=== PATIENT | male | born 1935 | race Caucasian/White ===

== ENCOUNTER 2017-09-29 08:53 | Outpatient (CLI) | payer OTHER, MEDICARE | END 2017-09-29 16:23 | disposition home or self-care (01) | LOC: SRD 08:53 | PROVIDERS: ATTEND Internal Medicine Cardiovascular Disease | DX: I70.0 Atherosclerosis of aorta (principal); M47.894 Other spondylosis, thoracic region; I10 Essential (primary) hypertension | CPT/HCPCS: 71046-TC ==

== ENCOUNTER 2018-06-17 00:22 | Emergency (ER) | payer OTHER, MEDICARE ==
[~2018-06-17] VITALS: Ht 170.2 cm; Wt 60.8 kg
[2018-06-17 00:31] VITALS: BP_SYST 125
--- NOTE | 2018-06-17 00:39 | NUR ---
Patient to ER bed 07 to gown for evaluation. Side rails up. Report given to NATIVIDAD Siegel
--- NOTE | 2018-06-17 00:41 | NUR ---
Patient brought in by daughter. Daughter reports patient fell at home on 06/15/18 when missing a step and fell face forward hitting a cement step. Daughter reports no KO/LOC, denies any dizziness/nausea/vomiting. Patient has abrasion to the bridge of nose, skin tear to the right forearm, and superficial laceration to 2nd left finger. Patient also complains of pain to right thigh. Pain 4/10. No other complaints/injuries per patient or as noted. Will continue to monitor.
--- NOTE | 2018-06-17 01:05 | NUR ---
Patient off unit to CT
--- NOTE | 2018-06-17 01:14 | NUR ---
Patient returned for CT scan. VSS. Will continue to monitor
--- NOTE | 2018-06-17 01:26 | NUR ---
ER Dr. Rodgers at bedside examining patient.
--- NOTE | 2018-06-17 01:43 | NUR ---
Wound Care applied to right forearm and bandaged with non adherent guaze and rolled guaze. Patient tolerated well.
[2018-06-17 01:53] VITALS: BP_SYST 125
--- NOTE | 2018-06-17 01:53 | NUR ---
Patient given written and verbal discharge instructions and verbalizes understanding. ER MD discussed with patient the results and treatment provided. Patient in stable condition. ID arm band removed. No Rx given. Patient educated on pain management and to follow up with PMD in 4-5 days. Pain Scale 0/10 Opportunity for questions provided and answered.
== END 2018-06-17 01:53 | disposition home or self-care (01) ==
LOC: SED 00:22
DX: S61.211A Laceration without foreign body of left index finger without damage to nail, initial encounter (principal); S09.90XA Unspecified injury of head, initial encounter; I10 Essential (primary) hypertension; Z86.79 Personal history of other diseases of the circulatory system; W18.09XA Striking against other object with subsequent fall, initial encounter; Y93.89 Activity, other specified; Y92.89 Other specified places as the place of occurrence of the external cause; Y99.8 Other external cause status
CPT/HCPCS: 70450-TC; 99284

== ENCOUNTER 2018-08-11 23:32 | Inpatient (IN) | payer OTHER, MEDICARE ==
[~2018-08-11] VITALS: Ht 172.7 cm; Wt 64.9 kg
[2018-08-11 23:39] VITALS: BP_SYST 152
[2018-08-11] MEDS ORDERED: glaucoma eye drops (23:51)
[2018-08-11] MEDS ORDERED: blood pressure meds (23:51)
[2018-08-11] MEDS ORDERED: cholesterol meds (23:51)
[2018-08-11] MEDS ORDERED: ASPI-1155 PO (23:51)
[2018-08-12 00:09] LABS: BASOPHILS % (AUTO) 1.3 % (0.0-2.0); EOSINOPHILS # (AUTO) 0.1 K/uL (0.0-0.4); HEMOGLOBIN 11.5 g/dL (14.0-18.0); LYMPHOCYTES # (AUTO) 3.7 K/uL (1.0-5.5); LYMPHOCYTES % (AUTO) 33.2 % (20.5-51.5); MEAN CORPUSCULAR HEMOGLOBIN 33 pg (27-31); MEAN CORPUSCULAR HGB CONC 33 % (32-36); MEAN CORPUSCULAR VOLUME 99 fL (79.0-98.0); MONOCYTES # (AUTO) 1.2 K/uL (0.0-1.0); MONOCYTES % (AUTO) 10.9 % (1.7-9.3); NEUTROPHILS % (AUTO) 53.6 % (40.0-70.0); PLATELET COUNT (AUTO) 163 K/uL (130-430); RED BLOOD CELL COUNT(AUTO) 3.55 MIL/uL (4.2-6.2); WHITE BLOOD COUNT (AUTO) 11.2 K/uL (4.8-10.8)
[2018-08-12 00:10] LABS: BASOPHILS # (AUTO) 0.1 K/uL (0.0-0.2)
[2018-08-12] MEDS ORDERED: methylPREDNISolone SOD SUCC/PF 62.5 MG/ML VIAL IVP ONE (00:15)
[2018-08-12] MEDS ORDERED: IPRATROPIUM/ALBUTEROL SULFATE 3 ML AMPUL.NEB (DUONEB) INH ONE (00:15)
[2018-08-12 00:17] LABS: ANION GAP 10 (5-15); CALCIUM 7.9 mg/dL (8.4-11.0); CHLORIDE 104 mmol/L (98-107); CREATININE 2.71 mg/dL (0.55-1.30); GLUCOSE 123 mg/dL (70-99); POTASSIUM 4.3 mmol/L (3.5-5.1); SODIUM SERUM 137 mmol/L (136-145); UREA NITROGEN, BLOOD 42 mg/dL (8-21)
[2018-08-12 00:23] LABS: ALANINE AMINOTRANSFERASE 37 U/L (12-78); ALBUMIN 2.1 g/dL (3.4-4.8); ASPARTATE AMINOTRANSFERASE 54 U/L (10-37); TOTAL BILIRUBIN 0.5 mg/dL (0.0-1.0)
[2018-08-12] MEDS ORDERED: IRBE75TA29 PO (00:31)
[2018-08-12] MEDS ORDERED: LIP80 PO (00:33)
[2018-08-12] MEDS ORDERED: ACYC800T PO (00:38)
[2018-08-12] MEDS ORDERED: DORZ10DR20 OP (00:38)
[2018-08-12 01:00] VITALS: BP_SYST 152
[2018-08-12 02:12] VITALS: BP_SYST 126
[2018-08-12] MEDS: IPRATROPIUM/ALBUTEROL SULFATE 3 ML AMPUL.NEB (DUONEB) INH SCH ×3 (07:27→19:44)
[2018-08-12 08:05] VITALS: BP_SYST 128
[2018-08-12] MEDS ORDERED: ACETAMINOPHEN 325 MG TABLET PO PRN (08:15)
[2018-08-12] MEDS ORDERED: INSULIN LISPRO SLIDING SCALE 100 UNITS/ML VIAL (humaLOG) SUBCUT PRN (08:30)
[2018-08-12] MEDS: ASPIRIN 81 MG TAB.CHEW PO SCH (08:59)
[2018-08-12] MEDS: FAMOTIDINE 20 MG TABLET PO SCH (09:00)
[2018-08-12] MEDS: LOSARTAN POTASSIUM 25 MG TABLET PO SCH (09:00)
[2018-08-12] MEDS ORDERED: IRBESARTAN 150 MG TABLET (AVAPRO) PO SCH (09:00)
[2018-08-12] MEDS ORDERED: methylPREDNISolone SOD SUCC 40 MG/ML VIAL IVP SCH (09:00)
[2018-08-12] MEDS: 0.45% NACL 1,000 ML IV SCH (09:20)
[2018-08-12 12:52] VITALS: BP_SYST 121
[2018-08-12] MEDS ORDERED: BENZOCAINE/MENTHOL 1 EACH LOZENGE MM PRN (13:45)
[2018-08-12 16:01] LABS: BILIRUBIN,URINE NEGATIVE (NEGATIVE); CLARITY/URINE CLEAR (CLEAR); COLOR,URINE YELLOW (YELLOW); GLUCOSE,URINE NEGATIVE (NEGATIVE); KETONES,URINE NEGATIVE (NEGATIVE); LEUKOCYTE ESTERASE ,URINE NEGATIVE (NEGATIVE); NITRITE, URINE NEGATIVE (NEGATIVE); PH,URINE 5.5 (5.0-8.0); PROTEIN URINE 1+ (NEGATIVE); UROBILINOGEN,URINE 0.2 (0.2-1.0)
[2018-08-12 16:05] VITALS: BP_SYST 140
[2018-08-12 16:09] LABS: BLOOD, URINE TRACE (NEGATIVE)
[2018-08-12 16:10] LABS: BACTERIA,URINE FEW /HPF (None Seen); MUCUS,URINE None Seen /LPF (None Seen); RBC,URINE NONE SEEN /HPF (0-3); WBC,URINE 0-3 /HPF (0-3)
[2018-08-12 20:00] VITALS: BP_SYST 130
[2018-08-12] MEDS: methylPREDNISolone SOD SUCC 40 MG/ML VIAL IVP SCH (20:32)
[2018-08-12] MEDS: ATORVASTATIN 20 MG TABLET PO SCH (20:32)
[2018-08-12] MEDS: LEVOFLOXACIN 250 MG/D5W 50 ML IV SCH (23:10)
[2018-08-13 00:20] VITALS: BP_SYST 122
[2018-08-13] MEDS: 0.45% NACL 1,000 ML IV SCH ×2 (05:43→23:26)
[2018-08-13 07:41] LABS: ALANINE AMINOTRANSFERASE 38 U/L (12-78); ALBUMIN 1.8 g/dL (3.4-4.8); ANION GAP 10 (5-15); ASPARTATE AMINOTRANSFERASE 48 U/L (10-37); CALCIUM 7.6 mg/dL (8.4-11.0); CHLORIDE 105 mmol/L (98-107); CREATININE 2.35 mg/dL (0.55-1.30); GLUCOSE 136 mg/dL (70-99); POTASSIUM 3.7 mmol/L (3.5-5.1); SODIUM SERUM 134 mmol/L (136-145); TOTAL BILIRUBIN 0.3 mg/dL (0.0-1.0); UREA NITROGEN, BLOOD 47 mg/dL (8-21)
[2018-08-13 07:48] LABS: HEMATOCRIT 28.8 % (36-54); HEMOGLOBIN 9.8 g/dL (14.0-18.0); MEAN CORPUSCULAR HEMOGLOBIN 33 pg (27-31); MEAN CORPUSCULAR HGB CONC 34 % (32-36); MEAN CORPUSCULAR VOLUME 98 fL (79.0-98.0); PLATELET COUNT (AUTO) 159 K/uL (130-430); RED BLOOD CELL COUNT(AUTO) 2.95 MIL/uL (4.2-6.2); RED CELL DISTRIBUTION WIDTH 14.9 % (9.0-15.0); WHITE BLOOD COUNT (AUTO) 10.5 K/uL (4.8-10.8)
[2018-08-13 07:49] LABS: BASOPHILS # (AUTO) 0.3 K/uL (0.0-0.2); BASOPHILS % (AUTO) 0.3 % (0.0-2.0); LYMPHOCYTES # (AUTO) 18.4 K/uL (1.0-5.5); LYMPHOCYTES % (AUTO) 18.4 % (20.5-51.5); MONOCYTES # (AUTO) 7.7 K/uL (0.0-1.0); MONOCYTES % (AUTO) 7.7 % (1.7-9.3); NEUTROPHILS # (AUTO) 73.6 K/uL (1.8-7.7); NEUTROPHILS % (AUTO) 73.6 % (40.0-70.0)
[2018-08-13 08:35] VITALS: BP_SYST 139
[2018-08-13] MEDS: FAMOTIDINE 20 MG TABLET PO SCH (08:39)
[2018-08-13] MEDS: ASPIRIN 81 MG TAB.CHEW PO SCH (08:39)
[2018-08-13] MEDS: LOSARTAN POTASSIUM 25 MG TABLET PO SCH (08:40)
[2018-08-13] MEDS: methylPREDNISolone SOD SUCC 40 MG/ML VIAL IVP SCH ×2 (08:42→21:07)
[2018-08-13 11:27] VITALS: BP_SYST 135
[2018-08-13 15:16] VITALS: BP_SYST 138
[2018-08-13] MEDS: IPRATROPIUM/ALBUTEROL SULFATE 3 ML AMPUL.NEB (DUONEB) INH SCH ×2 (19:46)
[2018-08-13 20:00] VITALS: BP_SYST 146
[2018-08-13] MEDS: ATORVASTATIN 20 MG TABLET PO SCH (21:07)
[2018-08-13] MEDS: LEVOFLOXACIN 250 MG/D5W 50 ML IV SCH (23:26)
[2018-08-14 02:05] VITALS: BP_SYST 127
[2018-08-14] MEDS: IPRATROPIUM/ALBUTEROL SULFATE 3 ML AMPUL.NEB (DUONEB) INH SCH ×2 (06:00)
[2018-08-14 07:09] LABS: ANION GAP 10 (5-15); CALCIUM 7.6 mg/dL (8.4-11.0); CHLORIDE 105 mmol/L (98-107); CREATININE 2.07 mg/dL (0.55-1.30); GLUCOSE 125 mg/dL (70-99); POTASSIUM 3.9 mmol/L (3.5-5.1); SODIUM SERUM 135 mmol/L (136-145); THYROID STIMULATING HORMONE 1.29 uIu/mL (0.34-4.82); UREA NITROGEN, BLOOD 47 mg/dL (8-21)
[2018-08-14 07:48] LABS: TOTAL IRON BIND. CAPACITY 182 ug/dL (250-450)
[2018-08-14 08:00] VITALS: BP_SYST 142
[2018-08-14 08:37] LABS: HEMATOCRIT 29.6 % (36-54); MEAN CORPUSCULAR HEMOGLOBIN 33 pg (27-31); MEAN CORPUSCULAR HGB CONC 34 % (32-36); MEAN CORPUSCULAR VOLUME 97 fL (79.0-98.0); PLATELET COUNT (AUTO) 185 K/uL (130-430); RED BLOOD CELL COUNT(AUTO) 3.06 MIL/uL (4.2-6.2); RED CELL DISTRIBUTION WIDTH 14.9 % (9.0-15.0); WHITE BLOOD COUNT (AUTO) 10.6 K/uL (4.8-10.8)
[2018-08-14 08:38] LABS: BASOPHILS % (AUTO) 0.3 % (0.0-2.0); LYMPHOCYTES # (AUTO) 1.7 K/uL (1.0-5.5); LYMPHOCYTES % (AUTO) 16.2 % (20.5-51.5); MONOCYTES # (AUTO) 0.8 K/uL (0.0-1.0); MONOCYTES % (AUTO) 7.4 % (1.7-9.3); NEUTROPHILS # (AUTO) 8.1 K/uL (1.8-7.7); NEUTROPHILS % (AUTO) 76.1 % (40.0-70.0)
[2018-08-14] MEDS ORDERED: PREDNISONE 20 MG TABLET PO SCH (09:00)
[2018-08-14] MEDS: LOSARTAN POTASSIUM 25 MG TABLET PO SCH (09:15)
[2018-08-14] MEDS: ASPIRIN 81 MG TAB.CHEW PO SCH (09:16)
[2018-08-14] MEDS: FAMOTIDINE 20 MG TABLET PO SCH (09:16)
[2018-08-14 11:34] VITALS: BP_SYST 156
[2018-08-14] MEDS ORDERED: IRBE75TA10 PO (15:03)
[2018-08-14 15:25] VITALS: BP_SYST 127
[2018-08-14] MEDS ORDERED: LEVO750T45 PO ×2 (15:30→15:32)
[2018-08-14] MEDS ORDERED: ALBMDI INH (15:36)
[2018-08-14] MEDS ORDERED: PRED20TA PO ×2 (15:38→15:40)
[2018-08-14 15:48] VITALS: BP_SYST 127
[2018-08-16 08:06] LABS: FOLATE (FOLIC ACID) 8.9 ng/mL (>3.0)
== END 2018-08-14 16:39 | disposition home or self-care (01) | DRG 371 ==
LOC: SED 23:32 → STU 08-12 01:18
PROVIDERS: ADMIT Internal Medicine; ATTEND Internal Medicine
DX: A04.72 Enterocolitis due to Clostridium difficile, not specified as recurrent (principal); E43 Unspecified severe protein-calorie malnutrition; N17.0 Acute kidney failure with tubular necrosis; J44.1 Chronic obstructive pulmonary disease with (acute) exacerbation; I13.0 Hypertensive heart and chronic kidney disease with heart failure and stage 1 through stage 4 chronic kidney disease, or unspecified chronic kidney disease; J44.0 Chronic obstructive pulmonary disease with (acute) lower respiratory infection; R65.10 Systemic inflammatory response syndrome (SIRS) of non-infectious origin without acute organ dysfunction; J20.9 Acute bronchitis, unspecified; E03.9 Hypothyroidism, unspecified; E78.5 Hyperlipidemia, unspecified; N18.9 Chronic kidney disease, unspecified; H40.9 Unspecified glaucoma; R19.7 Diarrhea, unspecified; R16.2 Hepatomegaly with splenomegaly, not elsewhere classified; I25.10 Atherosclerotic heart disease of native coronary artery without angina pectoris; D64.9 Anemia, unspecified; I50.9 Heart failure, unspecified; K70.30 Alcoholic cirrhosis of liver without ascites; R73.03 Prediabetes; Z87.11 Personal history of peptic ulcer disease; Z79.82 Long term (current) use of aspirin; Z87.891 Personal history of nicotine dependence; Z95.5 Presence of coronary angioplasty implant and graft; Z98.42 Cataract extraction status, left eye; I25.2 Old myocardial infarction; Z89.022 Acquired absence of left finger(s); Z68.21 Body mass index [BMI] 21.0-21.9, adult
CPT/HCPCS: 36415; 36600; 71045; 76770; 80048; 80053; 81000-TC; 82272; 82607; 82728; 82746; 82803-TC; 82962; 83540-TC; 83550-TC; 83605; 83880; 84443-TC; 85025; 86710; 87040-TC; 87086; 93005; 94640; 94664; 94760; 96365; 96375; 99285; G0378; J1030; J1956; J2930; J7512; J7620